=== PATIENT | female | born 1995 | race Caucasian/White ===

== ENCOUNTER 2017-02-09 22:35 | Emergency (ER) | payer BC ==
[~2017-02-09] VITALS: Ht 157.5 cm; Wt 55.0 kg
[2017-02-09 22:41] VITALS: TEMP 36.9; Ht 157.5 cm; Wt 55.0 kg
[2017-02-09] MEDS ORDERED: BCPILLS PO (22:52)
[2017-02-09] MEDS ORDERED: IBUP-103 PO (22:52)
[2017-02-09] MEDS ORDERED: OXYCODONE IR HOME PACK PO ONE (23:30)
--- NOTE | 2017-02-09 23:42 | EMERGENCY ROOM VISIT NOTE ---
ED Visit Note First contact with patient: 22:41 CHIEF COMPLAINT: Ankle pain HISTORY OF PRESENT ILLNESS: This 21-year-old patient presents to the emergency department with friends after sustaining an injury to the right ankle and foot with a twisting, inversion motion twisting off a curb. The patient complains of pain along the outside of the ankle. The patient complains of pain of the foot. The patient rates the pain as throbbing and 6/10. The patient is not able to bear weight on the foot. Constant pain, worse with movement, weight bearing, and the dependent position. No knee pain, the patient is able to move their toes. No numbness or weakness of the foot, no laceration. The patient has not had a previous fracture to this ankle. The patient has taken Motrin for the pain. The patient denies any other injury. REVIEW OF SYSTEMS: A 6 system review of systems was completed with positives and pertinent negatives listed in the HPI. ALLERGIES: none MEDICATIONS: none PMH: none SOCIAL HISTORY: No drug use PHYSICAL EXAM: Vital Signs: Reviewed Nurse's notes, vital signs stable. GENERAL : Pleasant female, no acute distress, but appears in pain, well-developed, well- nourished. MENTAL STATUS: Alert, oriented to person place and time, and cooperative. MUSCULOSKELETAL: The right ankle is swollen and tender over the lateral malleolus, but the skin is intact and there is no ligamentous instability. There is fifth metatarsal tenderness. There is tenderness over the rest of the foot. There is no calf or tibia/fibular tenderness. There is no visual deformity. The foot and toes are warm and well-perfused. Dorsalis pedis pulse 2+. Sensation to pain and light touch is intact. Capillary refill less than 2 seconds. EMERGENCY DEPARTMENT COURSE: I examined the patient. Ice pack was applied. X- rays of the foot and ankle were reviewed by myself and r reveal fifth metatarsal base fracture per my interpretation. Ortho-Glass posterior splint was applied to the ankle under my direction and the position was satisfactory. Neurovascular status was rechecked and intact. The patient was instructed on the use of crutches. Patient was advised when she returns home to [facility] orthopedist as soon as possible for definitive care for her fracture. She is given copies of her x-rays. She is advised to return to the ER immediately for severe pain, numbness, tingling, worsening signs or symptoms or as needed. The patient was discharged home in good condition. Differential diagnoses include sprain, strain, fracture, dislocation and other etiologies were considered. DIAGNOSIS: Right foot fifth metatarsal fracture DISCHARGE INSTRUCTIONS: As below Current/Historical Medications Scheduled Control Pills ( Control Pills), 1 TAB PO DAILY Scheduled PRN Ibuprofen Tab (Advil), 400 MG PO Q6H PRN for Pain Allergies Coded Allergies: No Known Allergies (Unverified , 02/09/17) Vital Signs Date Time Temp Pulse Resp B/P (MAP) Pulse Ox O2 Delivery O2 Flow Rate FiO2 02/09/17 22:41 36.9 103 18 121/59 95 Room Air Departure Information Impression Primary Impression: Fracture of fifth metatarsal bone of right foot Dispostion Home / Self-Care Condition GOOD Referrals Heath Jeter M.D. Forms HOME CARE DOCUMENTATION FORM, IMPORTANT VISIT INFORMATION Patient Instructions My [facility], ED Fx Foot Additional Instructions DO NOT drive, drink alcohol, operate machinery, or perform dangerous activities today. You were given medications in the ER that can affect your ability to safely function or operate a vehicle. Oxycodone (OxyIR) 5mg: Take 1-2 pills every four hours for breakthrough pain. Avoid alcohol, operating machinery or dangerous equipment, working on ladders or roofs, DRIVING, or situations where being under the influence may be dangerous. It is recommended to use an [id number] stool softener such as Colace, 100mg twice daily while taking this medication to avoid constipation. Ibuprofen(Motrin, Advil) may be used for fever or pain. Use 600mg every six hours as needed. Take with food. Avoid using more than 2400mg in a 24 hour period. Do not use 2400mg per day for more than three consecutive days without physician direction. Prolonged inappropriate use can lead to stomach upset or ulcers. This medication can be taken if you need to drive, work, or perform activities which may be dangerous when taking narcotic pain medication. (AND/OR) Acetaminophen(Tylenol) may be used for fever or pain. Use 1000mg every six hours as needed. Avoid using more than 3000mg in a 24 hour period. This medication can be taken if you need to drive, work, or perform activities which may be dangerous when taking narcotic pain medication. Ice compresses for 20 minutes at a time four times daily for 2-3 days. Use the crutches as instructed. Rest and elevate your injury. Do not get the splint wet. If your splint feels excessively tight, you have worsening pain, develop numbness or tingling, or your digits appear blue, loosen the moon wrap. Then reapply the moon wrap gently without removing the splint. If your symptoms are not quickly relieved return to the ER for re- evaluation. Continue current medications. Return to the ER immediately for any numbness, tingling, severe pain, extreme swelling in the extremity or as needed. Call Orthopedics tomorrow to arrange follow up for your injury.
[2017-02-10 00:15] VITALS: BP 112/52; PULSE 76; O2SAT 99
--- NOTE | 2017-02-10 05:45 | DIAGNOSTIC IMAGING REPORT ---
RIGHT ANKLE MIN 3 VIEWS ROUTINE CLINICAL HISTORY: fall, right Right trauma COMPARISON: None. DISCUSSION: Nondisplaced transverse fracture distal fibula at the lateral malleolus. Ankle mortise is aligned anatomically. All remaining osseous structures are unremarkable. Mild lateral soft tissue edema IMPRESSION: Nondisplaced fracture tip distal fibula The above report was generated using voice recognition software. It may contain grammatical, syntax or spelling errors. Electronically signed by: Epi Garibay M.D. 02/10/2017 5:44 AM Dictated Date/Time: 02/10/2017 5:43 AM
--- NOTE | 2017-02-10 05:46 | DIAGNOSTIC IMAGING REPORT ---
RIGHT FOOT MIN 3 VIEWS ROUTINE CLINICAL HISTORY: fall, right Right trauma. Pain. COMPARISON: None. DISCUSSION: Transverse fracture base fifth metatarsal. Small nondisplaced fracture tip distal fibula. The remaining osseous structures are unremarkable. No evidence for dislocation. IMPRESSION: 1. Nondisplaced transverse fracture base fifth metatarsal. Nondisplaced fracture tip distal fibula. The above report was generated using voice recognition software. It may contain grammatical, syntax or spelling errors. Electronically signed by: Epi Garibay M.D. 02/10/2017 5:45 AM Dictated Date/Time: 02/10/2017 5:44 AM
== END 2017-02-10 00:17 | disposition home or self-care (01) ==
LOC: C.EDB 22:37 → C.EDC 02-10 00:17
DX: S92.351A Displaced fracture of fifth metatarsal bone, right foot, initial encounter for closed fracture (principal); W10.1XXA Fall (on)(from) sidewalk curb, initial encounter; Z79.3 Long term (current) use of hormonal contraceptives

== ENCOUNTER → 2017-08-28 | Outpatient (CLI) | payer BC ==
[~2017-08-28] MED LIST: BCPILLS PO; GADAVIST IV PRN; IBUP-103 PO
--- NOTE | 2017-08-28 15:21 | DIAGNOSTIC IMAGING REPORT ---
MRI OF THE BRAIN WITHOUT AND WITH IV CONTRAST CLINICAL HISTORY: R55 syncope, headaches. COMPARISON STUDY: No previous studies for comparison. TECHNIQUE: MRI of the brain was performed from the vertex to the skull base utilizing various T1 and T2 weighted sequences. Following the IV administration of 6 mL of Gadavist contrast, additional enhanced images were obtained. FINDINGS: Sagittal T1, axial diffusion, proton density and T2 weighted axial, coronal FLAIR, and pre and post axial T1-weighted images were acquired. These were supplemented with post gadolinium coronal T1 weighted images. No intra or extra-axial mass lesions are visualized. Axial diffusion-weighted images reveal no evidence of acute or subacute infarction. There is no evidence of ventricular dilatation. Proton density T2-weighted and FLAIR images reveal a nonspecific 1.5 mm focus of increased T2 signal within the left frontal white matter. There are no abnormal flow voids. There is no evidence of pathologic enhancement. There is minimal cerebellar tonsillar ectopia (2 mm) IMPRESSION: 1. Minimal cerebellar tonsillar ectopia 2. Nonspecific 1.5 mm focus of increased T2 signal within the left frontal white matter. This is of doubtful acute clinical significance 3. Otherwise normal MRI of the brain Electronically signed by: Yovani Clayton M.D. 08/28/2017 3:19 PM Dictated Date/Time: 08/28/2017 3:15 PM
== END | disposition home or self-care (01) ==
LOC: C.MRI 14:05
PROVIDERS: ATTEND Physician Assistant
DX: R55 Syncope and collapse (principal)

== ENCOUNTER → 2017-09-06 | Outpatient (CLI) | payer BC ==
[~2017-09-06] MED LIST changes: -GADAVIST IV PRN
--- NOTE | 2017-09-08 10:44 | EEG Procedure Note ---
EEG Procedure Note Date of Service Sep 06, 2017. Start / End Times Start Time: 9:33am End Time: 9:54am Referring Physician ABDOUL Baron History 21 year old female with syncope. EEG for further evaluation of possible seizure etiology. Home Medication List Scheduled Control Pills ( Control Pills), 1 TAB PO DAILY Scheduled PRN Ibuprofen Tab (Advil), 400 MG PO Q6H PRN for Pain Description This is a 21 electrode EEG with a single channel dedicated to limited EKG. The electrodes were placed in accordance with the International 10-20 system. At the start of the recording the patient was in an awake state. The background was well organized and composed of symmetric mixed alpha and beta frequencies. There was a well formed symmetric moderate amplitude posterior dominant rhythm of 12 Hz that was reactive to eye opening and closure. Hyperventilation produced no abnormalities. Photic stimulation at various frequencies produced no abnormalities. Drowsiness was indicated by vertex waves. There was no stage 2 sleep transients. Interpretation This is a normal awake and drowsy EEG. There was no electrographic seizures or epileptiform discharges. Clinical Correlation A normal EEG does not rule out epilepsy if there is a strong clinical suspicion.
== END | disposition home or self-care (01) ==
LOC: C.NEUR 09:15
PROVIDERS: ATTEND Physician Assistant
DX: R55 Syncope and collapse (principal)

== ENCOUNTER 2017-11-10 08:07 | Emergency (ER) | payer BC ==
[~2017-11-10] VITALS: Ht 157.5 cm; Wt 64.9 kg
[2017-11-10 08:24] VITALS: TEMP 37; Ht 157.5 cm; Wt 64.9 kg
[2017-11-10] MEDS ORDERED: XYLOCAINE 1%/SOD BICARB 20 ML VIAL INFIL ONE (08:29)
[2017-11-10] MEDS ORDERED: LIDOCAINE HCL 2% JELLY 30 ML TUBE EXT ONE (08:38)
[2017-11-10] MEDS ORDERED: LIDO/EPINEPHRINE/SOD BICARB 20 ML VIAL INFIL ONE (09:12)
[2017-11-10] MEDS ORDERED: SERT25TA PO (09:19)
[2017-11-10 09:56] VITALS: BP 134/64; PULSE 79; O2SAT 99
--- NOTE | 2017-11-10 10:08 | EMERGENCY ROOM VISIT NOTE ---
ED Visit Note First contact with patient: 08:28 CHIEF COMPLAINT: Perineal laceration HISTORY OF PRESENT ILLNESS: This 22-year-old female patient presents to the emergency department by private vehicle with complaint of a vaginal laceration that occurred last night around 11 PM. Patient states that she was having vaginal intercourse with her boyfriend, states that they change position abruptly and he withdrew quickly causing a laceration of the right side of her vagina. She states she is here because the bleeding has not stopped. She reports mild amount of bright red lead, denies soaking pads or any heavy bleeding or clots. She denies any abnormal vaginal discharge. She denies any urinary symptoms. The patient rates the pain as burning and to/10. The patient denies any other injuries. The patient's Tetanus shot is up to date. REVIEW OF SYSTEMS: A 6 system review of systems was completed with positives and pertinent negatives listed in the HPI. ALLERGIES: No known allergies MEDICATIONS: Reviewed in chart PMH: No significant past medical or surgical history. Up-to-date on immunizations SOCIAL HISTORY: Lives at home. She is a [employer] student. She denies tobacco use. PHYSICAL EXAM: Vital Signs: Reviewed Nurse's notes, vital signs stable. GENERAL : Pleasant and cooperative, in no acute distress, well-developed, well- nourished. ABDOMEN: Soft, nontender, nondistended. Normal bowel sounds throughout. No CVA tenderness. PELVIC EXAM: VULVA: No ulcers, vesicles or atrophy. There is a 3 cm long laceration on the superior internal labia minora , the edges are gaping apart. There is no foreign material in the wound and it looks clean. There is moderate bleeding. No deep structures such as tendons, bones, or significant blood vessels are seen in the base of the wound. VAGINA: Clear discharge, no foul odor, no blood. Full exploration of the vaginal wall reveals no additional internal lacerations. CERVIX: Closed, pink, nontender, no cervical motion tenderness, no discharge. UTERUS: Normal size, nontender. ADNEXA: No masses or tenderness. A nurse was present as a financial coordinator during the examination. EMERGENCY DEPARTMENT COURSE: I examined the patient. Pelvic exam was performed noting the labial laceration as above. Patient was offered cultures for sexually transmitted infections, she declined this. Verbal consent was obtained to perform the procedure. Using sterile technique the wound was cleansed with Betadine. The area was sterilely draped. 3 ml of 1% buffered lidocaine with epinephrine was used to anesthetize the laceration on the right inner labia. Once the patient was anesthetized, the wound was copiously irrigated under pressure with sterile saline. The wound was explored and was as described above. The laceration was repaired using 15 subcuticular 5-0 Vicryl sutures with the wound edges being well approximated. The patient tolerated the procedure well. Hemostasis was achieved. The area was cleaned with sterile saline and dressed with bacitracin ointment. Patient was educated regarding wound care, follow-up, and return precautions, she verbalized understanding. The patient was discharged home in good condition and ambulatory. Current/Historical Medications Scheduled Control Pills ( Control Pills), 1 TAB PO DAILY Sertraline Hcl (Zoloft), 75 MG PO DAILY Allergies Coded Allergies: No Known Allergies (Unverified , 11/10/17) Vital Signs Date Time Temp Pulse Resp B/P (MAP) Pulse Ox O2 Delivery O2 Flow Rate FiO2 11/10/17 09:56 79 18 134/64 99 Room Air 11/10/17 08:24 37.0 86 18 121/78 96 Room Air Medications Administered Medications (Trade) Dose Ordered Sig/Mick Route Start Time Stop Time Status Last Admin Dose Admin Lidocaine HCl (Xylocaine Jelly 2%) 30 ml STK-MED ONCE EXT 11/10/17 08:38 11/10/17 08:39 DC 11/10/17 09:25 30 ML Departure Information Impression Primary Impression: Perineal laceration of labia Dispostion Home / Self-Care Condition GOOD Referrals No Doctor, Assigned (PCP) Patient Instructions ED Laceration Vaginal Non Obstetric, My [facility], Sitz Bath Additional Instructions You have been evaluated and treated in the emergency department for your labial laceration. You had 15 dissolvable sutures placed in your laceration. These will dissolve over time. It is not uncommon for some sutures to work their way out of the skin over time, do not pull at the sutures if this occurs.. Sitz baths to the area 2-3 times a day for the next few days, then as needed. Keep the area clean and dry. You may wash with warm water and mild soap, pat dry, then apply a thin layer of antibiotic ointment to the laceration. You may take ibuprofen 600 mg every 6-8 hours as needed for pain. Monitor for any signs of infection, including increased redness, swelling, pain , pus drainage, fevers or chills. If any of these develop, you should be evaluated by healthcare provider. Please follow-up with [facility] in the next few days to recheck your wound, or sooner for any worsening symptoms. Problem Qualifiers Primary Impression: Perineal laceration of labia Encounter type: initial encounter Qualified Codes: S31.41XA - Laceration without foreign body of vagina and vulva, initial encounter
== END 2017-11-10 10:15 | disposition home or self-care (01) ==
LOC: C.EDB 08:09 → C.EDA 10:15
DX: S31.41XA Laceration without foreign body of vagina and vulva, initial encounter (principal); X58.XXXA Exposure to other specified factors, initial encounter

== ENCOUNTER 2018-03-16 09:04 | Emergency (ER) | payer BC ==
[~2018-03-16 09:04] MED LIST changes: -IBUP-103 PO; +SERT25TA PO
[2018-03-16 09:07] VITALS: Ht 160 cm
[2018-03-16] MEDS ORDERED: IBUPROFEN 600 MG TAB PO STA (09:19)
--- NOTE | 2018-03-16 09:59 | DIAGNOSTIC IMAGING REPORT ---
L ANKLE MIN 3 VIEWS ROUTINE CLINICAL HISTORY: Left ankle pain following injury. COMPARISON: None FINDINGS: Alignment of the left ankle is anatomic. No acute fracture is present. Talar dome is intact. IMPRESSION: No acute fracture or dislocation within the left ankle. Electronically signed by: Lalito Doshi M.D. 03/16/2018 9:58 AM Dictated Date/Time: 03/16/2018 9:57 AM
--- NOTE | 2018-03-16 10:01 | DIAGNOSTIC IMAGING REPORT ---
L FOOT MIN 3 VIEWS ROUTINE CLINICAL HISTORY: Left foot and ankle pain following injury. COMPARISON: None FINDINGS: Tarsometatarsal joints are intact. No acute fracture is identified within the left foot. No osseous lesion is identified. IMPRESSION: No acute fracture or dislocation within the left foot. Electronically signed by: Lalito Doshi M.D. 03/16/2018 9:59 AM Dictated Date/Time: 03/16/2018 9:58 AM
--- NOTE | 2018-03-16 10:13 | EMERGENCY ROOM VISIT NOTE ---
ED Visit Note First contact with patient: 09:11 CHIEF COMPLAINT: Ankle pain HISTORY OF PRESENT ILLNESS: This 22-year-old female patient presents to the emergency department by private vehicle after sustaining an injury to the left ankle and foot with a twisting, inversion motion last night. Patient states that she was walking and stepped in a hole, overturning the foot. The patient complains of pain along the front of the ankle. The patient has some pain of the foot. The patient rates the pain as throbbing and 8/10. The patient is not able to bear weight on the foot. Constant pain, worse with movement, weight bearing, and the dependent position. No knee pain, the patient is able to move their toes. No numbness or weakness of the foot, no laceration. The patient has not had a previous fracture to this ankle. The patient has taken no medications for the pain, but has been using ice. The patient denies any other injury. REVIEW OF SYSTEMS: A 6 system review of systems was completed with positives and pertinent negatives listed in the HPI. ALLERGIES: No known allergies. MEDICATIONS: Reviewed in the chart, see below. PMH: Depression SOCIAL HISTORY: Lives at home. She denies tobacco use. PHYSICAL EXAM: Vital Signs: Reviewed Nurse's notes, vital signs stable. GENERAL : Pleasant and cooperative, no acute distress, but appears in pain, well- developed, well-nourished. MENTAL STATUS: Alert, oriented to person place and time, and cooperative. MUSCULOSKELETAL: The left ankle is swollen and tender over the lateral malleolus and across the anterior aspect of the ankle, but the skin is intact and there is no ligamentous instability. There is no fifth metatarsal tenderness. There is no tenderness over the rest of the foot. There is no calf or tibia/fibular tenderness. There is no visual deformity. The foot and toes are warm and well-perfused. Dorsalis pedis pulse 2+. Sensation to pain and light touch is intact. Capillary refill less than 2 seconds. IMAGING: L FOOT MIN 3 VIEWS ROUTINE CLINICAL HISTORY: Left foot and ankle pain following injury. COMPARISON: None FINDINGS: Tarsometatarsal joints are intact. No acute fracture is identified within the left foot. No osseous lesion is identified. IMPRESSION: No acute fracture or dislocation within the left foot. ----- L ANKLE MIN 3 VIEWS ROUTINE CLINICAL HISTORY: Left ankle pain following injury. COMPARISON: None FINDINGS: Alignment of the left ankle is anatomic. No acute fracture is present. Talar dome is intact. IMPRESSION: No acute fracture or dislocation within the left ankle. EMERGENCY DEPARTMENT COURSE: I examined the patient. Differential diagnosis includes sprain/strain, contusion, fracture, dislocation, among others. She was given an ice pack and Motrin for the pain. X-rays of the left foot and ankle were reviewed by myself and read by radiology and reveal no acute fracture or dislocation. Gel ankle splint was applied to the ankle under my direction and the position was satisfactory. Neurovascular status was rechecked and intact. Patient reports improved pain after the Motrin and appears more comfortable. The patient was instructed on the use of crutches. The patient was educated regarding pain management at home, follow-up, and return precautions, she verbalized understanding. The patient was discharged home in good condition. Current/Historical Medications Scheduled Control Pills ( Control Pills), 1 TAB PO DAILY Sertraline Hcl (Zoloft), 75 MG PO DAILY Allergies Coded Allergies: No Known Allergies (Unverified , 03/16/18) Vital Signs Date Time Temp Pulse Resp B/P (MAP) Pulse Ox O2 Delivery O2 Flow Rate FiO2 03/16/18 10:29 36.9 100 18 102/57 98 03/16/18 09:07 36.9 100 18 102/57 98 Room Air Medications Administered Medications (Trade) Dose Ordered Sig/Mick Route Start Time Stop Time Status Last Admin Dose Admin Ibuprofen (Motrin Tab) 600 mg NOW STAT PO 03/16/18 09:19 03/16/18 09:21 DC 03/16/18 09:27 600 MG Departure Information Impression Primary Impression: Left ankle sprain Dispostion Home / Self-Care Condition GOOD Referrals No Doctor, Assigned (PCP) Patient Instructions ED Crutch Walking, ED Sprain Ankle, My [facility] Additional Instructions You have been evaluated and treated in the emergency department today for your left ankle injury. X-rays of your ankle and foot are negative for any fractures. You most likely have a sprain. Wear the ankle splint to help stabilize her sprain and stay off of the left leg , use the crutches to get around. Problem Qualifiers Primary Impression: Left ankle sprain Encounter type: initial encounter Involved ligament of ankle: unspecified ligament Qualified Codes: S93.402A - Sprain of unspecified ligament of left ankle, initial encounter
[2018-03-16 10:29] VITALS: BP 102/57; PULSE 100; TEMP 36.9; O2SAT 98
== END 2018-03-16 10:30 | disposition home or self-care (01) ==
LOC: C.EDB 09:05
DX: S93.402A Sprain of unspecified ligament of left ankle, initial encounter (principal); X50.9XXA Other and unspecified overexertion or strenuous movements or postures, initial encounter; Z79.3 Long term (current) use of hormonal contraceptives